=== PATIENT | female | born 1980 ===

== ENCOUNTER 2021-05-11 19:57 | Inpatient (IN) | payer MEDICAID ==
[~2021-05-11] VITALS: Ht 167.6 cm; Wt 101.1 kg
[2021-05-11] MEDS ORDERED: SUCCINYLCHOLINE CHLORIDE 20 MG/ML 10 ML VIAL IVP ONE (20:15)
[2021-05-11] MEDS ORDERED: ETOMIDATE 2 MG/ML 10 ML VIAL IVP ONE (20:15)
[2021-05-11] MEDS ORDERED: PROPOFOL 1000 MG/ISO-OSM 100 ML ONE (20:17)
[2021-05-11] MEDS: PROPOFOL 1000 MG/ISO-OSM 100 ML IV PRN ×2 (20:23→23:00)
[2021-05-11 20:36] LABS: HEMATOCRIT 42.6 % (36-46); HEMOGLOBIN 13.5 g/dL (12.0-16.0); MEAN CORPUSCULAR HEMOGLOBIN 25.1 pg (26.0-34.0); MEAN CORPUSCULAR HGB CONC 31.6 G/dL (31.0-37.0); MEAN CORPUSCULAR VOLUME 79 fL (80-100); PLATELET COUNT (AUTO) 335 K/uL (150-450); RED BLOOD CELL COUNT(AUTO) 5.37 MIL/uL (4.00-5.20); RED CELL DISTRIBUTION WIDTH 19.7 % (11.5-14.5)
[2021-05-11 20:49] LABS: COVID AG,FIA SOURCE NASOPHARYNGEAL
[2021-05-11 20:54] LABS: APPEARANCE,URINE HAZY (CLEAR); BILIRUBIN,URINE NEGATIVE (NEGATIVE); GLUCOSE, URINE (UA) >=1000 mg/dL (NEGATIVE); KETONES,URINE NEGATIVE (NEGATIVE); LEUKOCYTE ESTERASE ,URINE NEGATIVE (NEGATIVE); NITRATE,URINE NEGATIVE (NEGATIVE); OCCULT BLOOD,URINE SMALL (NEGATIVE); PROTEIN,URINE 300-600,SEE CONFIRM mg/dL (NEGATIVE); SPECIFIC GRAVITIY, URINE 1.014 (1.003-1.030); UROBILINOGEN,URINE <=1.0 mg/dL (<=1.0)
[2021-05-11 20:59] LABS: BAND NEUTROPHILS % (MANUAL) 0 % (0-5)
[2021-05-11] MEDS ORDERED: PIPERACILLIN/TAZO 3.375 GM/D5W 50 ML IV ONE (21:00)
[2021-05-11] MEDS ORDERED: LEVOFLOXACIN 500 MG/D5% WATER 100 ML IV ONE (21:00)
[2021-05-11 21:01] LABS: AMPHET/METH SCREEN,URINE POSITIVE (NEGATIVE); BARBITURATE SCREEN, URINE NEGATIVE (NEGATIVE); BENZODIAZEPINES SCREEN,URINE NEGATIVE (NEGATIVE); CANNABINOID SCREEN,URINE POSITIVE (NEGATIVE); COCAINE SCREEN,URINE POSITIVE (NEGATIVE); METHADONE SCREEN, URINE NEGATIVE (NEGATIVE); OPIATE SCREEN,URINE NEGATIVE (NEGATIVE)
[2021-05-11] MEDS: FentaNYL CIT 1000MCG/0.9% NACL 100 ML IV PRN (21:01)
[2021-05-11 21:03] LABS: ABG BASE EXCESS -6.6 mmol/L (-2.0-3.0); ABG CARBOXYHEMOGLOBIN 1.8 % (0.0-1.5); ABG HCO3 18.9 mmol/L (22.0-26.0); ABG METHEMOGLOBIN 0.1 % (0.0-1.5); ABG OXYGEN CONTENT 18.1 mL/dL (15.0-23.0); ABG OXYGEN SATURATION 92.8 % (95.0-98.0); ABG PCO2 50 mmHg (35-45); ABG TOTAL HEMOGLOBIN 14.1 G/dL (12.0-18.0); SOURCE, BLOOD GAS ARTERIAL; TEMPERATURE, FAHRENHEIT, BG 98.6 FAHREN (96.0-98.6)
[2021-05-11 21:04] LABS: O2 DEVICE,BLOOD GAS VENTILATOR (ROOM AIR); PEEP,BG 5 cm H2O; SITE, BLOOD GAS RT RADIAL; VT, ABG 550 ml
[2021-05-11 21:06] LABS: BASOPHILS % (MANUAL) 1 % (0-2); EOSINOPHILS % (MANUAL) 1 % (1-6); LYMPHOCYTES % (MANUAL) 52 % (22-44); METAMYELOCYTES % 2 % (0-0); MONOCYTES % (MANUAL) 8 % (2-9); REACTIVE LYMPHOCYTES 4 % (0-0); SEGMENTED NEUTROPHILS % 32 % (40-70)
[2021-05-11 21:13] LABS: PHENCYCLIDINE SCREEN,URINE POSITIVE (NEGATIVE); SULFOSALICYLIC ACID,URINE 4+ (Negative)
[2021-05-11 21:16] LABS: CALCIUM, TOTAL 8.9 mg/dL (8.8-10.5); CREATININE 1.45 mg/dL (0.60-1.30); POTASSIUM 4.1 mmol/L (3.5-5.1)
[2021-05-11 21:20] LABS: BACTERIA,URINE None Seen /HPF (None Seen); RBC,URINE 0-2 /HPF (0-2); SQUAMOUS EPITHELIAL CELL,UR Few /LPF (None Seen); WBC,URINE 0-2 /HPF (0-5)
[2021-05-11 21:21] LABS: ALBUMIN 3.4 g/dL (3.4-5.0); BILIRUBIN,TOTAL 0.3 mg/dL (0.1-1.0); TOTAL PROTEIN, SERUM 7.7 g/dL (6.4-8.2)
[2021-05-11] MEDS ORDERED: ONDANSETRON HCL 4 MG/2 ML VIAL IVP PRN ×2 (21:30→21:45)
[2021-05-11] MEDS ORDERED: BISACODYL 10 MG RECTAL RECTAL SUPPOSITORY PR PRN (21:45)
[2021-05-11] MEDS ORDERED: SODIUM CHLORIDE 0.9% 1,000 ML IV ONE (21:45)
[2021-05-11] MEDS ORDERED: VANCOMYCIN HCL 1.5 GM in DEXTROSE 5%-WATER 250 ML IV ONE (22:30)
[2021-05-12] VITALS: BP 100/56
[2021-05-12] MEDS: HEPARIN SODIUM,PORCINE 5,000 UNITS/ML VIAL SQ SCH ×3 (00:35→16:11)
[2021-05-12] MEDS: PROPOFOL 1000 MG/ISO-OSM 100 ML IV PRN ×4 (02:32→20:40)
[2021-05-12] MEDS ORDERED: SODIUM CHLORIDE 0.9% 250 ML IV ONE (02:35)
[2021-05-12 04:00] VITALS: BP 124/89
[2021-05-12] MEDS: PIPERACILLIN/TAZO 3.375 GM/D5W 50 ML IV SCH ×4 (04:24→22:22)
[2021-05-12] MEDS: FentaNYL CIT 1000MCG/0.9% NACL 100 ML IV PRN ×2 (05:15→16:58)
[2021-05-12 05:30] LABS: BASOPHILS % (AUTO) 0.3 % (0.0-2.0); EOSINOPHILS % (AUTO) 0.2 % (1.0-6.0); HEMATOCRIT 38.6 % (36-46); HEMOGLOBIN 12.4 g/dL (12.0-16.0); LYMPHOCYTES # (AUTO) 1.1 K/uL (1.0-4.8); LYMPHOCYTES % (AUTO) 13.4 % (22.0-44.0); MEAN CORPUSCULAR VOLUME 78 fL (80-100); MONOCYTES # (AUTO) 0.5 K/uL (0.1-1.0); MONOCYTES % (AUTO) 6.7 % (2.0-9.0); NEUTROPHILS # (AUTO) 6.3 K/uL (1.8-7.7); NEUTROPHILS % (AUTO) 79.4 % (40.0-70.0); PLATELET COUNT (AUTO) 274 K/uL (150-450); RED BLOOD CELL COUNT(AUTO) 4.94 MIL/uL (4.00-5.20); RED CELL DISTRIBUTION WIDTH 19.3 % (11.5-14.5)
[2021-05-12] MEDS ORDERED: INFLUENZA VIRUS VACCINE QVS 2021-22 (6MO+)/PF 60 MCG/0.5 ML SYRINGE IM. ONE (06:30)
[2021-05-12] MEDS ORDERED: INSULIN LISPRO 100 UNITS/ML SQ PRN (07:30)
[2021-05-12] MEDS ORDERED: DEXTROSE 50%-WATER 25 GM/50 ML SYRINGE IVP PRN (07:30)
[2021-05-12 08:00] VITALS: BP 118/76
[2021-05-12] MEDS ORDERED: VANCOMYCIN HCL 1 GM/D5% WATER 200 ML IV SCH (08:00)
[2021-05-12] MEDS: ETHYL ALCOHOL 62% ANTISEPTIC NASAL INHALANT 0.6 ML AMPUL NASAL SCH ×2 (08:16→20:40)
[2021-05-12] MEDS: PANTOPRAZOLE SODIUM 40 MG/VIAL IVP SCH (08:17)
[2021-05-12 08:18] LABS: ANION GAP 8 mmol/L (8-16); CALCIUM, TOTAL 8.5 mg/dL (8.8-10.5); CARBON DIOXIDE 28 mmol/L (22-29); CHLORIDE 105 mmol/L (98-107); GLOMERULAR FILTR. RATE CALC > 60 mL/min (>60); GLUCOSE,RANDOM 91 mg/dL (70-110); POTASSIUM 4.3 mmol/L (3.5-5.1); SODIUM SERUM 141 mmol/L (136-145); UREA NITROGEN, BLOOD 17 mg/dL (7-18)
[2021-05-12 11:18] LABS: ABG BASE EXCESS -1.7 mmol/L (-2.0-3.0); ABG CARBOXYHEMOGLOBIN 0.6 % (0.0-1.5); ABG METHEMOGLOBIN 0.3 % (0.0-1.5); ABG OXYGEN CONTENT 16.4 mL/dL (15.0-23.0); ABG OXYGEN SATURATION 96.6 % (95.0-98.0); ABG OXYHEMOGLOBIN 95.7 % (94.0-100.0); ABG PCO2 45 mmHg (35-45); ABG PH 7.349 (7.350-7.450); ABG TOTAL HEMOGLOBIN 12.1 G/dL (12.0-18.0); PO2, ARTERIAL BG 90.4 mmHg (92.0-100.0); SOURCE, BLOOD GAS ARTERIAL; TEMPERATURE, FAHRENHEIT, BG 99.1 FAHREN (96.0-98.6)
[2021-05-12 11:21] LABS: SITE, BLOOD GAS LFT RADIAL
[2021-05-12 11:22] LABS: ABG A-A DIFF O2 215.6 mmHg (10-20.0); O2 DEVICE,BLOOD GAS VENTILATOR (ROOM AIR); VT, ABG 550 ml
[2021-05-12 11:23] LABS: PEEP,BG 5 cm H2O
[2021-05-12 12:00] VITALS: BP 108/70
[2021-05-12] MEDS ORDERED: PROPOFOL 1000 MG/ISO-OSM 100 ML ONE (12:16)
[2021-05-12 16:00] VITALS: BP 98/70
[2021-05-12] MEDS: ACETAMINOPHEN 325 MG TABLET PO PRN (16:10)
[2021-05-12 16:36] LABS: GLUCOMETER DEV NAME(LOC) AHU.; GLUCOSE,POINT OF CARE 98 MG/DL (70-110)
[2021-05-12] MEDS: VANCOMYCIN HCL 1 GM/D5% WATER 200 ML IV SCH (16:53)
[2021-05-12] MEDS: FUROSEMIDE 20 MG/2 ML VIAL IVP SCH (16:54)
[2021-05-12 20:00] VITALS: BP 120/59
[2021-05-12 20:21] LABS: GLUCOSE,POINT OF CARE 105 MG/DL (70-110)
[2021-05-12 20:52] LABS: GLUCOSE,POINT OF CARE 94 MG/DL (70-110)
[2021-05-13] VITALS: BP 96/68
[2021-05-13] MEDS: VANCOMYCIN HCL 1 GM/D5% WATER 200 ML IV SCH ×2 (00:14→09:15)
[2021-05-13] MEDS: HEPARIN SODIUM,PORCINE 5,000 UNITS/ML VIAL SQ SCH ×3 (00:16→17:02)
[2021-05-13] MEDS: ACETAMINOPHEN 325 MG TABLET PO PRN ×2 (00:17→14:04)
[2021-05-13] MEDS: PROPOFOL 1000 MG/ISO-OSM 100 ML IV PRN ×7 (01:35→22:47)
[2021-05-13] MEDS ORDERED: AMIODARONE HCL 150 MG in DEXTROSE 5%-WATER 97 ML IV ONE (01:45)
[2021-05-13] MEDS ORDERED: AMIODARONE HCL 360 MG in DEXTROSE 5%-WATER 242.8 ML IV ONE (02:00)
[2021-05-13] MEDS: FentaNYL CIT 1000MCG/0.9% NACL 100 ML IV PRN ×2 (03:47→22:48)
[2021-05-13] MEDS: PIPERACILLIN/TAZO 3.375 GM/D5W 50 ML IV SCH ×4 (03:49→22:57)
[2021-05-13 04:00] VITALS: BP 102/61
[2021-05-13 07:20] LABS: CHLORIDE 103 mmol/L (98-107); POTASSIUM 3.6 mmol/L (3.5-5.1); SODIUM SERUM 135 mmol/L (136-145); UREA NITROGEN, BLOOD 12 mg/dL (7-18)
[2021-05-13 07:35] LABS: ANION GAP 5 mmol/L (8-16); CALCIUM, TOTAL 8.5 mg/dL (8.8-10.5); CARBON DIOXIDE 27 mmol/L (22-29); CREATININE 0.76 mg/dL (0.60-1.30); GLOMERULAR FILTR. RATE CALC > 60 mL/min (>60); GLUCOSE,RANDOM 100 mg/dL (70-110); VANCOMYCIN,RANDOM 15.5 mcg/mL (25.0-50.0)
[2021-05-13 08:00] VITALS: BP 120/77
[2021-05-13] MEDS ORDERED: AMIODARONE HCL 540 MG in DEXTROSE 5%-WATER 239.2 ML IV ONE (08:00)
[2021-05-13] MEDS: ETHYL ALCOHOL 62% ANTISEPTIC NASAL INHALANT 0.6 ML AMPUL NASAL SCH ×2 (09:15→20:14)
[2021-05-13] MEDS: PANTOPRAZOLE SODIUM 40 MG/VIAL IVP SCH (09:15)
[2021-05-13] MEDS: FUROSEMIDE 20 MG/2 ML VIAL IVP SCH (09:15)
[2021-05-13 10:02] LABS: GLUCOSE,POINT OF CARE 63 MG/DL (70-110)
[2021-05-13] MEDS ORDERED: FUROSEMIDE 20 MG/2 ML VIAL IVP SCH (10:30)
[2021-05-13 12:00] VITALS: BP 131/79
[2021-05-13 13:06] LABS: GLUCOSE,POINT OF CARE 105 MG/DL (70-110)
[2021-05-13] MEDS: CARVEDILOL 6.25 MG TABLET NG SCH ×2 (14:02→20:14)
[2021-05-13 16:00] VITALS: BP 128/80
[2021-05-13] MEDS: VANCOMYCIN HCL 1.25 GM in DEXTROSE 5%-WATER 250 ML IV SCH (17:01)
[2021-05-13 20:00] VITALS: BP 137/76
[2021-05-13 20:56] LABS: GLUCOSE,POINT OF CARE 105 MG/DL (70-110)
[2021-05-14] VITALS: BP 128/81
[2021-05-14] MEDS: VANCOMYCIN HCL 1.25 GM in DEXTROSE 5%-WATER 250 ML IV SCH ×3 (00:30→16:00)
[2021-05-14] MEDS: HEPARIN SODIUM,PORCINE 5,000 UNITS/ML VIAL SQ SCH ×3 (00:30→16:00)
[2021-05-14] MEDS: PROPOFOL 1000 MG/ISO-OSM 100 ML IV PRN ×3 (01:47→13:47)
[2021-05-14] MEDS ORDERED: AMIODARONE HCL 750 MG in DEXTROSE 5%-WATER 485 ML IV SCH (02:00)
[2021-05-14 04:00] VITALS: BP 108/72
[2021-05-14] MEDS: PIPERACILLIN/TAZO 3.375 GM/D5W 50 ML IV SCH ×4 (05:05→22:54)
[2021-05-14 05:44] LABS: ANION GAP 11 mmol/L (8-16); CALCIUM, TOTAL 9.1 mg/dL (8.8-10.5); CARBON DIOXIDE 30 mmol/L (22-29); CHLORIDE 99 mmol/L (98-107); CREATININE 0.75 mg/dL (0.60-1.30); GLOMERULAR FILTR. RATE CALC > 60 mL/min (>60); GLUCOSE,RANDOM 96 mg/dL (70-110); POTASSIUM 3.8 mmol/L (3.5-5.1); SODIUM SERUM 140 mmol/L (136-145); UREA NITROGEN, BLOOD 8 mg/dL (7-18)
[2021-05-14] MEDS: ETHYL ALCOHOL 62% ANTISEPTIC NASAL INHALANT 0.6 ML AMPUL NASAL SCH ×2 (07:59→20:47)
[2021-05-14 08:00] VITALS: BP 125/85
[2021-05-14] MEDS: FUROSEMIDE 20 MG/2 ML VIAL IVP SCH (08:00)
[2021-05-14] MEDS: PANTOPRAZOLE SODIUM 40 MG/VIAL IVP SCH (08:00)
[2021-05-14] MEDS: CARVEDILOL 6.25 MG TABLET NG SCH ×2 (08:00→20:47)
[2021-05-14 08:21] LABS: GLUCOSE,POINT OF CARE 106 MG/DL (70-110)
[2021-05-14 08:21] LABS: GLUCOSE,POINT OF CARE 77 MG/DL (70-110)
[2021-05-14] MEDS: MULTIVITAMINS, THERAPEUTIC TABLET PO SCH (10:13)
[2021-05-14 10:25] LABS: PHOSPHORUS 3.7 mg/dL (2.5-4.9)
[2021-05-14 12:00] VITALS: BP 100/68
[2021-05-14 13:01] LABS: GLUCOSE,POINT OF CARE 105 MG/DL (70-110)
[2021-05-14 14:06] LABS: ABG BASE EXCESS 6.5 mmol/L (-2.0-3.0); ABG CARBOXYHEMOGLOBIN 0.9 % (0.0-1.5); ABG HCO3 29.6 mmol/L (22.0-26.0); ABG METHEMOGLOBIN 0.3 % (0.0-1.5); ABG OXYGEN CONTENT 17.1 mL/dL (15.0-23.0); ABG OXYGEN SATURATION 95.9 % (95.0-98.0); ABG OXYHEMOGLOBIN 94.7 % (94.0-100.0); ABG PCO2 45 mmHg (35-45); ABG PH 7.447 (7.350-7.450); ABG TOTAL HEMOGLOBIN 12.8 G/dL (12.0-18.0); PO2, ARTERIAL BG 79.3 mmHg (92.0-100.0); SOURCE, BLOOD GAS ARTERIAL; TEMPERATURE, FAHRENHEIT, BG 98.6 FAHREN (96.0-98.6)
[2021-05-14 14:07] LABS: SITE, BLOOD GAS LFT BRACHIAL
[2021-05-14 14:08] LABS: ABG A-A DIFF O2 81.5 mmHg (10-20.0); O2 DEVICE,BLOOD GAS VENTILATOR (ROOM AIR); VENT MODE, BG CPAP (ROOM AIR)
[2021-05-14 14:09] LABS: PEEP,BG 5 cm H2O; PRESSURE SUPPORT, BG 8 cm H2O; SPONTANEOUS VT, BG 530 ml
[2021-05-14 16:00] VITALS: BP 120/92
[2021-05-14 20:00] VITALS: BP 130/94
[2021-05-14] MEDS ORDERED: SODIUM CHLORIDE 0.9% 250 ML IV ONE (22:52)
[2021-05-15] VITALS (8 sets, daily range): BP systolic 113–154; BP diastolic 67–99
[2021-05-15] MEDS: VANCOMYCIN HCL 1.25 GM in DEXTROSE 5%-WATER 250 ML IV SCH ×3 (00:25→17:15)
[2021-05-15] MEDS: HEPARIN SODIUM,PORCINE 5,000 UNITS/ML VIAL SQ SCH ×3 (00:26→16:00)
[2021-05-15] MEDS ORDERED: KETOROLAC TROMETHAMINE 15 MG/ML VIAL IVP ONE (00:30)
[2021-05-15] MEDS: PIPERACILLIN/TAZO 3.375 GM/D5W 50 ML IV SCH ×4 (04:16→22:00)
[2021-05-15 06:10] LABS: ANION GAP 8 mmol/L (8-16); CALCIUM, TOTAL 9.3 mg/dL (8.8-10.5); CARBON DIOXIDE 30 mmol/L (22-29); CHLORIDE 99 mmol/L (98-107); GLOMERULAR FILTR. RATE CALC > 60 mL/min (>60); GLUCOSE,RANDOM 105 mg/dL (70-110); POTASSIUM 3.6 mmol/L (3.5-5.1); SODIUM SERUM 137 mmol/L (136-145); UREA NITROGEN, BLOOD 6 mg/dL (7-18)
[2021-05-15] MEDS: ACETAMINOPHEN 325 MG TABLET PO PRN ×3 (08:06→23:51)
[2021-05-15] MEDS: MULTIVITAMINS, THERAPEUTIC TABLET PO SCH (08:07)
[2021-05-15] MEDS: CARVEDILOL 6.25 MG TABLET NG SCH ×2 (08:09→23:40)
[2021-05-15] MEDS: ETHYL ALCOHOL 62% ANTISEPTIC NASAL INHALANT 0.6 ML AMPUL NASAL SCH (08:09)
[2021-05-15] MEDS: FUROSEMIDE 20 MG/2 ML VIAL IVP SCH (08:11)
[2021-05-15] MEDS: PANTOPRAZOLE SODIUM 40 MG/VIAL IVP SCH (08:11)
[2021-05-15] MEDS ORDERED: POTASSIUM CHLORIDE 20 MEQ ER TABLET PO ONE (08:30)
[2021-05-15] MEDS ORDERED: ONDANSETRON HCL 4 MG TABLET PO PRN (08:30)
[2021-05-15] MEDS ORDERED: LISINOPRIL 10 MG TABLET PO SCH (09:30)
[2021-05-16] MEDS: HEPARIN SODIUM,PORCINE 5,000 UNITS/ML VIAL SQ SCH
[2021-05-16] MEDS: VANCOMYCIN HCL 1.25 GM in DEXTROSE 5%-WATER 250 ML IV SCH ×2
[2021-05-16 03:45] VITALS: BP 160/114
[2021-05-16] MEDS: PIPERACILLIN/TAZO 3.375 GM/D5W 50 ML IV SCH (05:05)
[2021-05-16] MEDS ORDERED: FURO-152 PO ×2 (06:25→06:35)
[2021-05-16] MEDS ORDERED: CARV6 PO (06:30)
[2021-05-16] MEDS ORDERED: LISI10TA24 PO (06:33)
[2021-05-16 07:19] LABS: ANION GAP 11 mmol/L (8-16); CALCIUM, TOTAL 9.1 mg/dL (8.8-10.5); CARBON DIOXIDE 28 mmol/L (22-29); CHLORIDE 100 mmol/L (98-107); CREATININE 0.81 mg/dL (0.60-1.30); GLOMERULAR FILTR. RATE CALC > 60 mL/min (>60); GLUCOSE,RANDOM 128 mg/dL (70-110); POTASSIUM 3.1 mmol/L (3.5-5.1); SODIUM SERUM 139 mmol/L (136-145); UREA NITROGEN, BLOOD 10 mg/dL (7-18); VANCOMYCIN,RANDOM 43.6 mcg/mL (25.0-50.0)
[2021-05-16 08:30] VITALS: BP 125/87
[2021-05-16] MEDS ORDERED: VANCOMYCIN HCL 1 GM/D5% WATER 200 ML IV SCH (20:00)
== END 2021-05-16 08:30 | disposition home or self-care (01) | DRG 812 ==
LOC: EMS 19:59 → ICU 21:00 → EDBD 21:00 → 5S 05-15 18:15
PROVIDERS: ADMIT Internal Medicine; ATTEND Internal Medicine
PROC: 5A1945Z Respiratory Ventilation, 24-96 Consecutive Hours (ICD-10-PCS; principal; 2021-05-11)
PROC: 5A09357 Assistance with Respiratory Ventilation, Less than 24 Consecutive Hours, Continuous Positive Airway Pressure (ICD-10-PCS; 2021-05-11)
PROC: 0BH17EZ Insertion of Endotracheal Airway into Trachea, Via Natural or Artificial Opening (ICD-10-PCS; 2021-05-11)
PROC: 05HF33Z Insertion of Infusion Device into Left Cephalic Vein, Percutaneous Approach (ICD-10-PCS; 2021-05-12)
DX: T40.991A Poisoning by other psychodysleptics [hallucinogens], accidental (unintentional), initial encounter (principal); J96.01 Acute respiratory failure with hypoxia; J69.0 Pneumonitis due to inhalation of food and vomit; G92.8 Other toxic encephalopathy; I50.23 Acute on chronic systolic (congestive) heart failure; N17.9 Acute kidney failure, unspecified; T40.5X1A Poisoning by cocaine, accidental (unintentional), initial encounter; T40.711A Poisoning by cannabis, accidental (unintentional), initial encounter; I42.9 Cardiomyopathy, unspecified; E66.01 Morbid (severe) obesity due to excess calories; Z20.822 Contact with and (suspected) exposure to COVID-19; Z99.11 Dependence on respirator [ventilator] status; Y92.89 Other specified places as the place of occurrence of the external cause; Z68.36 Body mass index [BMI] 36.0-36.9, adult
CPT/HCPCS: 31500; 36245; 36569; 36600; 51702; 70450; 71045; 71250; 76937; 80048; 80053; 80202; 81001; 81002; 81003; 82805; 82962; 83036; 83735; 83880; 84100; 84145; 84484; 84703; 85025; 87040; 87070; 87081; 93005; 93306; 93970; 94002; 94003; 99291; C9113; G0378; J0282; J1644; J1885; J1940; J1956; J2543; J2704; J3370; J3490; J7030; J7050; J7060; Q0162; Q9967; 36415-L1; 36415-TC